=== PATIENT | female | born 1935 | race Hispanic/Latino ===

== ENCOUNTER 2017-03-03 08:50 | Observation (INO) | payer OTHER ==
[~2017-03-03] VITALS: Ht 149.9 cm; Wt 94.3 kg
[~2017-03-03 08:50] MED LIST: AEC81 PO; AMLO5TAB2 PO; CARV12.511 PO; CLOP75TA32 PO; DOCU-116 PO; FERR-82 PO; FURO20TA4 PO; ISOS30TA6 PO; PRAV20TA4 PO; ROPI0.5T5 PO
[2017-03-03 09:15] LABS: BASOPHILS % (AUTO) 0.4 % (0.0-5.0); EOSINOPHILS % (AUTO) 4.2 % (0.0-8.0); HEMATOCRIT 30.8 % (36-48); LYMPHOCYTES % (AUTO) 16.2 % (21.0-51.0); MEAN CORPUSCULAR HEMOGLOBIN 30.2 pg (27.0-33.0); MEAN CORPUSCULAR HGB CONC 34.4 g/dL (32.0-36.0); MEAN CORPUSCULAR VOLUME 87.9 fL (79-99); MONOCYTES % (AUTO) 7.1 % (3.0-13.0); NEUTROPHILS % (AUTO) 72.1 % (40.0-77.0); PLATELET COUNT (AUTO) 143 K/uL (130-400); RED CELL DISTRIBUTION WIDTH 13.7 % (11.0-15.5); WHITE BLOOD COUNT (AUTO) 8.5 K/uL (4.8-10.8)
[2017-03-03 09:22] LABS: CREATININE 1.5 mg/dL (0.5-1.5); POTASSIUM 4.4 mmol/L (3.5-5.1)
[2017-03-03 09:25] LABS: INR 0.95 (0.85-1.15); PARTIAL THROMBOPLASTIN TIME 29.6 SEC (26.3-35.5)
[2017-03-03 09:38] LABS: ALBUMIN 3.7 g/dL (3.5-5.0); BILIRUBIN,TOTAL 0.5 mg/dL (0.2-1.0); CREATINE KINASE MB 0.5 ng/mL (0.5-3.6); TOTAL PROTEIN, SERUM 7.4 g/dL (6.0-8.3)
[2017-03-03 09:41] LABS: APPEARANCE,URINE Clear (CLEAR); BILIRUBIN,URINE Negative (NEGATIVE); COLOR,URINE Yellow (YELLOW); GLUCOSE, URINE (UA) Negative (NEGATIVE); KETONES,URINE Negative (NEGATIVE); LEUKOCYTE ESTERASE ,URINE Negative (NEGATIVE); NITRATE,URINE Negative (NEGATIVE); OCCULT BLOOD,URINE Trace (NEGATIVE); PROTEIN,URINE Negative (NEGATIVE); UROBILINOGEN,URINE 0.2 mg/dL (0.2-1.0)
[2017-03-03 09:52] LABS: BACTERIA,URINE Rare /HPF (None Seen); SQUAMOUS EPITHELIAL CELL,UR Rare /LPF (0-2); WBC,URINE 0-1 /HPF (0-1)
[2017-03-03] MEDS ORDERED: FUROSEMIDE 10 MG/ML 4ML VIAL ONE ×2 (10:19→18:30)
[2017-03-03] MEDS ORDERED: ASPIRIN 325 MG TABLET ONE (10:19)
[2017-03-03 18:24] LABS: CREATINE KINASE MB < 0.5 ng/mL (0.5-3.6); CREATINE KINASE, TOTAL 43 U/L (21-232)
[2017-03-03 18:25] LABS: MYOGLOBIN 84 ng/mL (10-92); TROPONIN I < 0.04 ng/mL (0.00-0.06)
[2017-03-03 19:05] VITALS: BP 125/60
[2017-03-03] MEDS ORDERED: LIDOCAINE HCL-MPF 1% 2ML VIAL IJ PRN (20:15)
[2017-03-03] MEDS ORDERED: POTASSIUM CHLORIDE 10% ELIXIR 20 MEQ/15 ML UDCUP PO PRN (20:15)
[2017-03-03] MEDS ORDERED: POTASSIUM CHLORIDE 20 MEQ ERTAB PO PRN (20:15)
[2017-03-03] MEDS ORDERED: POTASSIUM CHLORIDE 20MEQ/100ML 100 ML IV PRN (20:15)
[2017-03-03] MEDS: INSULIN R PO SS1 SQ SCH (20:51)
[2017-03-03] MEDS: DOCUSATE SODIUM 100 MG CAP PO SCH (21:00)
[2017-03-03] MEDS: CARVEDILOL 12.5 MG TABLET PO SCH (21:00)
[2017-03-03] MEDS ORDERED: ATORVASTATIN CALCIUM 10 MG TABLET PO SCH (21:00)
[2017-03-03] MEDS ORDERED: ROPINIROLE HCL 1 MG TABLET PO SCH (21:00)
[2017-03-03] MEDS ORDERED: CHOL500050 PO (21:04)
[2017-03-03] MEDS ORDERED: CRAN1CAP10 PO (21:04)
[2017-03-03 23:38] VITALS: BP 132/60
[2017-03-04 02:05] LABS: HEMATOCRIT 28.6 % (36-48); MEAN CORPUSCULAR HEMOGLOBIN 29.6 pg (27.0-33.0); MEAN CORPUSCULAR HGB CONC 34.1 g/dL (32.0-36.0); MEAN CORPUSCULAR VOLUME 86.8 fL (79-99); PLATELET COUNT (AUTO) 144 K/uL (130-400); RED CELL DISTRIBUTION WIDTH 13.7 % (11.0-15.5); WHITE BLOOD COUNT (AUTO) 8.3 K/uL (4.8-10.8)
[2017-03-04 02:56] LABS: CARBON DIOXIDE 30 mmol/L (21-32); CHLORIDE 101 mmol/L (101-111); GLUCOSE,RANDOM 151 mg/dL (70-105); POTASSIUM 3.8 mmol/L (3.5-5.1); SODIUM SERUM 138 mmol/L (136-145); UREA NITROGEN, BLOOD 31 mg/dL (7-18)
[2017-03-04 02:57] LABS: CREATININE 1.5 mg/dL (0.5-1.5); GLOMERULAR FILTR. RATE CALC 36 mL/min (>60)
[2017-03-04 03:19] LABS: CREATINE KINASE MB < 0.5 ng/mL (0.5-3.6); CREATINE KINASE, TOTAL 32 U/L (21-232)
[2017-03-04 03:28] VITALS: BP 114/42
[2017-03-04 05:03] LABS: ABG BASE EXCESS 2.2 mmol/L (-2.0-3.0); ABG HCO3 26.8 mmol/L (21.0-28.0); ABG PCO2 42 mmHg (32-45)
[2017-03-04] MEDS ORDERED: FUROSEMIDE 10 MG/ML 4ML VIAL IVP SCH (06:00)
[2017-03-04] MEDS: INSULIN R PO SS1 SQ SCH ×3 (06:50→16:30)
[2017-03-04 08:00] VITALS: BP 107/54
[2017-03-04] MEDS ORDERED: ASCORBIC ACID PO SCH (09:00)
[2017-03-04] MEDS ORDERED: ASPIRIN 81 MG EC TAB PO SCH (09:00)
[2017-03-04] MEDS ORDERED: CRANBERRY PO SCH (09:00)
[2017-03-04] MEDS ORDERED: AMLODIPINE BESYLATE 5 MG TAB PO SCH (09:00)
[2017-03-04] MEDS ORDERED: CLOPIDOGREL BISULFATE 75 MG TAB PO SCH (09:00)
[2017-03-04] MEDS ORDERED: FERROUS SULFATE 325 MG TABLET.DR PO SCH (09:00)
[2017-03-04] MEDS ORDERED: ENOXAPARIN SODIUM 40 MG/0.4 ML SYRINGE SQ SCH (09:00)
[2017-03-04] MEDS ORDERED: ISOSORBIDE MONO 30MG TAB SR PO SCH (09:00)
[2017-03-04] MEDS: DOCUSATE SODIUM 100 MG CAP PO SCH (10:05)
[2017-03-04] MEDS: CARVEDILOL 12.5 MG TABLET PO SCH (10:07)
[2017-03-04 10:22] LABS: CREATINE KINASE MB < 0.5 ng/mL (0.5-3.6); CREATINE KINASE, TOTAL 32 U/L (21-232)
[2017-03-04 11:00] VITALS: BP 111/48
[2017-03-04 16:00] VITALS: BP 118/52
[2017-03-04] MEDS ORDERED: FUROSEMIDE 40 MG TABLET PO SCH (18:00)
[2017-03-10] MEDS ORDERED: **HM**Cholecalciferol (Vitamin D3) (Vitamin D) 50,000 UNIT PO SCH (09:00)
== END 2017-03-04 19:20 | disposition home or self-care (01) ==
LOC: EDH 08:50 → EDHIP 11:00 → 3BH 18:50
PROVIDERS: ADMIT Internal Medicine Critical Care Medicine; ATTEND Internal Medicine Critical Care Medicine
DX: I13.0 Hypertensive heart and chronic kidney disease with heart failure and stage 1 through stage 4 chronic kidney disease, or unspecified chronic kidney disease (principal); N18.3 Chronic kidney disease, stage 3 (moderate); R09.02 Hypoxemia; I50.31 Acute diastolic (congestive) heart failure; E11.22 Type 2 diabetes mellitus with diabetic chronic kidney disease; E66.01 Morbid (severe) obesity due to excess calories; M19.90 Unspecified osteoarthritis, unspecified site; Z91.11 Patient's noncompliance with dietary regimen; Z82.49 Family history of ischemic heart disease and other diseases of the circulatory system; Z90.49 Acquired absence of other specified parts of digestive tract
CPT/HCPCS: 36415 ×2; 36600; 71045 ×2; 80048; 80053; 81001; 82550 ×4; 82553 ×4; 82803; 82948 ×6; 83874; 83880; 84484 ×4; 85025; 85027; 85610; 85730; 87804 ×2; 93005; 94760; 96372; 96374; 99285; G0378 ×32; J1650; J1940 ×3

== ENCOUNTER 2018-03-11 23:22 | Emergency (ER) | payer OTHER ==
[~2018-03-11 23:22] MED LIST changes: -AMLO5TAB2 PO; +AMLO5TAB9 PO; +CHOL500050 PO; +CRAN1CAP10 PO
[2018-03-12 00:25] LABS: BASOPHILS % (AUTO) 0.8 % (0.0-5.0); EOSINOPHILS % (AUTO) 0.8 % (0.0-8.0); HEMATOCRIT 28.5 % (36-48); LYMPHOCYTES % (AUTO) 15.4 % (21.0-51.0); MEAN CORPUSCULAR HEMOGLOBIN 29.1 pg (27.0-33.0); MEAN CORPUSCULAR VOLUME 85.6 fL (79-99); MONOCYTES % (AUTO) 8.8 % (3.0-13.0); NEUTROPHILS % (AUTO) 74.2 % (40.0-77.0); PLATELET COUNT (AUTO) 206 K/uL (130-400); RED BLOOD CELL COUNT(AUTO) 3.33 MIL/uL (4.00-5.50); RED CELL DISTRIBUTION WIDTH 13.9 % (11.0-15.5); WHITE BLOOD COUNT (AUTO) 8.6 K/uL (4.8-10.8)
[2018-03-12 00:35] LABS: CREATININE 1.8 mg/dL (0.5-1.5)
[2018-03-12] MEDS ORDERED: MORPHINE SULFATE 2 MG/ML 1ML SYG ONE (01:28)
[2018-03-12] MEDS ORDERED: COLCHICINE 0.6 MG TABLET ONE (01:44)
== END 2018-03-12 02:01 | disposition home or self-care (01) ==
LOC: EDH 23:22
DX: M25.572 Pain in left ankle and joints of left foot (principal); M13.80 Other specified arthritis, unspecified site
CPT/HCPCS: 36415; 73610; 73630; 80048; 85025; 96374